=== PATIENT | male | born 1995 | race Asian ===

== ENCOUNTER 2019-11-19 16:40 | Emergency (ER) | payer BC ==
[2019-11-19 17:10] LABS: Bilirubin Negative (Negative); Blood, Urine Negative (Negative); Clarity Clear (Clear); Glucose, Urine (Dipstick) Normal (Negative); Leukocyte Negative Leu/uL (Negative); Nitrite Negative (Negative); Protein, Urine (Dipstick) Negative (Neg-Trace); Urobilinogen Normal mg/dL (Less than 2)
--- NOTE | 2019-11-19 17:58 | ULT ---
SCROTAL ULTRASOUND WITH DOPPLER 11/19/19 PROVIDED CLINICAL HISTORY: Right testicular pain. FINDINGS: Right testicle measures about 3.8 x 2.1 x 2.9 cm and demonstrates a normal mukherjee scale sonographic jose earance. The right epididymis appears normal. Left testicle measures about 4 x 2.3 x 2.7 cm and demon strates a normal mukherjee scale sonographic appearance. The left epididymis appears normal. Color Doppler and spectral analysis of the testicular waveforms demonstrate normal flow bilaterally. There is a small left hydrocele. There is no evidence for varicocele. IMPRESSION: Normal flow is demonstrated to both testicles. POS: EMA
== END 2019-11-19 17:47 | disposition home or self-care (01) ==
LOC: ERS 16:40
DX: I86.1 Scrotal varices (principal)
CPT/HCPCS: 76870; 81003; 93976

== ENCOUNTER 2020-05-05 01:23 | Emergency (ER) | payer BC, OTHER ==
--- NOTE | 2020-05-05 07:58 | ULT ---
Emergent after hours scrotal ultrasound HISTORY: Left testicular pain for 2 months. COMPARISON: 11/19/2019 IMPRESSION: 1. Normal appearing bilateral testicles without evidence of a testicular mass. Flow is demonstrated i n each testicle on color flow evaluation spectral analysis. 2. Minimal fluid adjacent to the left testicle likely physiologic in origin. There is suggestion of a left epididymal cyst. 3. Findings are in agreement with pulmonary report by direct radiology. Code QA
== END 2020-05-05 02:44 | disposition home or self-care (01) ==
LOC: ERS 01:23
DX: N43.3 Hydrocele, unspecified (principal)
CPT/HCPCS: 76870; 93976